=== PATIENT | male | born 1955 | race Caucasian/White ===

== ENCOUNTER 2016-06-03 13:26 | Emergency (ER) | payer SELFPAY ==
[2016-06-03] MEDS ORDERED: Ketorolac INJ* 30 MG/ML 1 ML VIAL IV PUSH ONE (13:55)
[2016-06-03 14:02] VITALS: BP 143/85
[2016-06-03 14:02] LABS: Hematocrit 43 % (42-52); Hemoglobin 14.9 g/dl (14.0-18.0); Mean Corpuscular HGB Conc 35 g/dl (31-36); Mean Corpuscular Hemoglobin 34 pg (27-31); Mean Corpuscular Volume 100 fL (80-94); Mean Platelet Volume 8 um3 (7.4-10.4); Red Blood Count 4.35 10^6/ul (4.0-5.4); Red Cell Distribution Width 14 % (10.5-15); White Blood Count 5.9 10^3/ul (3.5-10.8)
[2016-06-03 14:10] LABS: Urine Bilirubin Negative (Negative); Urine Glucose Negative (Negative); Urine Nitrite Negative (Negative)
[2016-06-03 14:14] LABS: Albumin 3.6 g/dL (3.2-5.2); BUN/Creatinine Ratio 13.4 (8-20); Calcium 8.7 mg/dL (8.6-10.3); EGFR African American 156.1 (>60); EGFR Non-African American 121.4 (>60); Globulin 3.9 g/dL (2-4); Potassium 3.7 mmol/L (3.5-5.0); Total Protein 7.5 g/dL (6.4-8.9)
[2016-06-03 14:44] LABS: TSH (Thyroid Stimulating Horm) 1.7 mcIU/mL (0.34-5.60)
--- NOTE | 2016-06-03 14:59 | RAD ---
INDICATION: LEFT arm and LEFT side chest pain. COMPARISON: None. TECHNIQUE: Dual energy PA and routine lateral views of the chest were obtained. REPORT: Elevated lung volumes. Mild prominence of the interstitial markings. No focal pulmonary lesion, alveolar consolidation, pleural effusion, pneumothorax. The heart, pulmonary vasculature, and mediastinal contours are unremarkable. Unremarkable soft tissue contours and osseous structures. IMPRESSION: Stigmata of probable chronic obstructive pulmonary disease. No acute cardiopulmonary process evident.
--- NOTE | 2016-06-03 15:33 | ED ---
Farhan Escobar Karl, scribed for Francisco J Hannon MD on 06/03/16 at 1355 . Upper Extremity Pain - HPI Summary HPI Summary: 61 y/o M presents with acute on chronic left shoulder pain. Pt reported the pain is inside his left armpit and has gotten worse in the last few days, rating it at an 8/10. Pt stated that he has had SOB 'all the time" and the pt is under the influence of EtOH while in the room. Pt pain is aggravated by movement. Pt denied any nausea, vomiting, or injury. Hx: stroke. - History of Current Complaint Stated Complaint: CHEST PAIN Time Seen by Provider: 06/03/16 13:39 Hx Obtained From: Patient Onset/Duration: Started Days Ago, Atraumatic, Worse Since Timing: Constant Severity Initially: Mild Severity Currently: Moderate Pain Location: Shoulder - left Character: Sharp Aggravating Factor(s): Movement Alleviating Factor(s): Nothing - Allergies/Home Medications Allergies/Adverse Reactions: Allergies Allergy/AdvReac Type Severity Reaction Status Date / Time No Known Allergies Allergy Verified 06/03/16 14:35 PMH/Surg Hx/FS Hx/Imm Hx Previously Healthy: No Infectious Disease History: Denies: Traveled Outside the [place] in Last 30 Days - Family History Known Family History: Positive: Other - [place] - Social History Alcohol Use: Daily Hx Tobacco Use: No Smoking Status (MU): Never Smoked Tobacco Review of Systems Constitutional: Negative Eyes: Negative ENT: Negative Cardiovascular: Negative Positive: Shortness Of Breath Gastrointestinal: Negative Genitourinary: Negative Positive: Arthralgia - left shoulder Skin: Negative Neurological: Negative Psychological: Other - EtOH intoxication All Other Systems Reviewed And Are Negative: Yes Physical Exam - Summary Physical Exam Summary: VITAL SIGNS: Reviewed. GENERAL: Patient is a well developed and nourished male who is lying comfortable in the stretcher. Patient is not in any acute respiratory distress. HEAD AND FACE: No signs of trauma. No ecchymosis, hematomas or skull depressions. No sinus tenderness. EYES: PERRLA, EOMI x 2, No injected conjunctiva, no nystagmus. EARS: Hearing grossly intact. Ear canals and tympanic membranes are within normal limits. MOUTH: Oropharynx within normal limits. NECK: Supple, trachea is midline, no adenopathy, no JVD, no carotid bruit, no c- spine tenderness, neck with full ROM. CHEST: Symmetric, reproduction of pain at palpation in the left rib cage area mid axillary line. LUNGS: Clear to auscultation bilaterally. No wheezing or crackles. CVS: Regular rate and rhythm, S1 and S2 present, no murmurs or gallops appreciated. ABDOMEN: Soft, non-tender. No signs of distention. No rebound no guarding, and no masses palpated. Bowel sounds are normal. EXTREMITIES: FROM in all major joints, no edema, no cyanosis or clubbing. NEURO: Alert and oriented x 3. No acute neurological deficits. Speech is normal and follows commands. SKIN: Dry and warm Triage Information Reviewed: Yes Vital Signs On Initial Exam: Initial Vitals BP 130/88 06/03/16 13:44 Vital Signs Reviewed: Yes Diagnostics - Vital Signs Vital Signs Pulse Resp BP Pulse Ox 06/03/16 13:46 82 15 93 06/03/16 13:44 130/88 - Laboratory Lab Results: Lab Results 06/03/16 06/03/16 06/03/16 Range/Units 13:40 13:40 13:57 WBC 5.9 (3.5-10.8) 10^3/ul RBC 4.35 (4.0-5.4) 10^6/ul Hgb 14.9 (14.0-18.0) g/dl Hct 43 (42-52) % MCV 100 H (80-94) fL MCH 34 H (27-31) pg MCHC 35 (31-36) g/dl RDW 14 (10.5-15) % Plt Count 134 L (150-450) 10^3/ul MPV 8 (7.4-10.4) um3 Neut % (Auto) 61.7 (38-83) % Lymph % (Auto) 25.3 (25-47) % [place] % (Auto) 11.0 H (1-9) % Eos % (Auto) 0.5 (0-6) % Baso % (Auto) 1.5 (0-2) % Absolute Neuts (auto) 3.6 (1.5-7.7) 10^3/ul Absolute Lymphs (auto) 1.5 (1.0-4.8) 10^3/ul Absolute Monos (auto) 0.7 (0-0.8) 10^3/ul Absolute Eos (auto) 0 (0-0.6) 10^3/ul Absolute Basos (auto) 0.1 (0-0.2) 10^3/ul Absolute Nucleated RBC 0 10^3/ul Nucleated RBC % 0 Sodium 136 (133-145) mmol/L Potassium 3.7 (3.5-5.0) mmol/L Chloride 103 (101-111) mmol/L Carbon Dioxide 25 (22-32) mmol/L Anion Gap 8 (2-11) mmol/L BUN 9 (6-24) mg/dL Creatinine 0.67 (0.67-1.17) mg/dL Est GFR ( Amer) 156.1 (>60) Est GFR (Non-Af Amer) 121.4 (>60) BUN/Creatinine Ratio 13.4 (8-20) Glucose 90 (70-100) mg/dL Calcium 8.7 (8.6-10.3) mg/dL Total Bilirubin 1.00 (0.2-1.0) mg/dL AST 249 H (13-39) U/L ALT 172 H (7-52) U/L Alkaline Phosphatase 62 (34-104) U/L Total Creatine Kinase 108 (10-223) U/L CK-MB (CK-2) 3.0 (0.6-6.3) ng/mL Troponin I 0.00 (<0.04) ng/mL Total Protein 7.5 (6.4-8.9) g/dL Albumin 3.6 (3.2-5.2) g/dL Globulin 3.9 (2-4) g/dL Albumin/Globulin Ratio 0.9 L (1-3) TSH Pending Urine Color Straw Urine Appearance Clear Urine pH 6.0 (5-9) Ur Specific [place] 1.002 L (1.010-1.030) Urine Protein Negative (Negative) Urine Ketones Negative (Negative) Urine Blood Negative (Negative) Urine Nitrate Negative (Negative) Urine Bilirubin Negative (Negative) Urine Urobilinogen Negative (Negative) Ur Leukocyte Esterase Negative (Negative) Urine Glucose Negative (Negative) Result Diagrams: 06/03/16 13:40 06/03/16 13:40 Lab Statement: Any lab studies that have been ordered have been reviewed, and results considered in the medical decision making process. - Radiology CXR Xray Interpretation: No Acute Changes Radiology Interpretation Completed By: Radiologist - IMPRESSION: Stigmata of probable chronic obstructive pulmonary disease. No acute cardiopulmonary process evident. - EKG 13:22 EKG Interpretation: NSR at 79 bpm, No ST elevation Course/Dx - Course Assessment/Plan: 61 y/o M presents with acute on chronic left shoulder pain. Pt reported the pain is inside his left armpit and has gotten worse in the last few days, rating it at an 8/10. Pt stated that he has had SOB 'all the time" and the pt is under the influence of EtOH while in the room. Pt pain is aggravated by movement. Pt denied any nausea, vomiting, or injury. Hx: stroke. He denies any hx of trauma of heavy lifting. P/E: left shuolder has FROM and no pain in the left shoulder therefore I did x-ray the shoulder. Blood work WNL except for increased LFTs possible secondary to his alcoholism. Troponin is 0.00. EKG w/ nsr w/o KEERTHI. In the ED course he was given Toradol for pain. CXR: Stigmata for COPD. No acute cardiopulmonary disease. After medication was given patients pain has resolved. Patient has been observed in the ER for approximately 2 hours. Because the patient has no significant comorbidities and no family history of cardiovascular disease the patient will be discharged home with follow up of PMD. I discussed all the findings and test results with the patient. Patient was instructed to return to the emergency room immediately if any of the symptoms return or worsens. Patient understands and agrees. Plan of care was discussed with the patient and patient understands and agrees. All questions were answered at patient satisfaction. There were no further complaints or concerns. PE before discharge: CVS: S1 and S2 present. No murmurs appreciated. Abdominal exam before discharge: Soft, non-tender. No signs of distention. No rebound no guarding, and no masses palpated. Bowel sounds are normal. Patient is alert and oriented x 3. Patient is hemodynamically stable. Patient is going home with her sister in law. - Diagnoses Differential Diagnosis/HQI/PQRI: Positive: Arthritis, Bursitis, Contusion, Strain, Sprain Provider Diagnoses: Musculoskeletal pain, Atypical chest pain Discharge - Discharge Plan Condition: Stable Disposition: HOME Prescriptions: Naproxen TAB* [Naprosyn TAB*] 500 mg PO Q8H PRN #20 tab PRN Reason: Pain Patient Education Materials: Chest Pain (ED), Shoulder Pain (ED), Arthralgia ( ED) Referrals: Nick Hutson MD [Medical Doctor] - Additional Instructions: Please follow up with your primary care provider. Return to the emergency department for changing or worsening symptoms. The documentation as recorded by the Farhan alejandro Karl accurately reflects the service I personally performed and the decisions made by , Francisco J Hannon MD.
== END 2016-06-03 16:07 | disposition home or self-care (01) ==
LOC: ED 13:26
DX: R07.89 Other chest pain (principal); M79.1 Myalgia; R06.02 Shortness of breath; F10.10 Alcohol abuse, uncomplicated; Z86.73 Personal history of transient ischemic attack (TIA), and cerebral infarction without residual deficits
CPT/HCPCS: 36415; 71020; 80053; 81003; 82550; 82553; 83880; 84443; 84484; 85025; 93005; 96374; 99283; J1885